=== PATIENT | female | born 1965 | race Hispanic/Latino ===

== ENCOUNTER 2017-07-03 20:41 | Emergency (ER) | payer MEDICARE, OTHER ==
[2017-07-03 20:42] VITALS: BMI 23.2
[2017-07-03] MEDS ORDERED: Albuterol-Ipratrop 3 mg / 0.5 (3 ml) UD IH STA (21:11)
[2017-07-03 21:19] VITALS: BP 112/74; PULSE 85; RESP 24; TEMP 98.1; O2SAT 98
--- NOTE | 2017-07-03 21:49 | ED PDOC ---
Arrival/HPI - General Chief Complaint: Cough, Cold, Congestion Time Seen by Provider: 07/03/17 20:43 Historian: Patient - History of Present Illness Narrative History of Present Illness (Text): 07/03/17 21:10 Jena Knox is a 52 year old female, whose past medical history includes COPD, Stage 3 cervical cancer, and pancreatitis, who presents to the Emergency department complaining of minimally productive cough yellowish sputum for past few days. Patient reports associated chills but no fever.No chest pain. Patient also reports slight shortness of breath which she attributes to her COPD. Patient notes she was recently in contact with someone sick. Patient denies any history of nausea, vomiting, diarrhea, urinary symptoms, back pain, neck pain, headache, dizziness, or any other complaints. Symptom Onset: Gradual Symptom Course: Unchanged Activities at Onset: Light Context: Home Past Medical History - Provider Review Nursing Documentation Reviewed: Yes - Infectious Disease Hx of Infectious Diseases: None - Tetanus Immunization Tetanus Immunization: Unknown - Cardiac Hx Pacemaker: No - Pulmonary Hx Respiratory Disorders: Yes Hx Chronic Obstructive Pulmonary Disease (COPD): Yes Hx Emphysema: Yes Other/Comment: former smoker - Neurological Hx Paralysis: No - HEENT Hx HEENT Disorder: No - Renal Hx Renal Disorder: Yes Other/Comment: renal disease, horseshoe kidney - Endocrine/Metabolic Hx Endocrine Disorders: No - Hematological/Oncological Hx Blood Transfusions: No Hx Blood Transfusion Reaction: No - Integumentary Hx Dermatological Disorder: No - Musculoskeletal/Rheumatological Hx Musculoskeletal Disorders: Yes - Gastrointestinal Hx Gastrointestinal Disorders: Yes Hx Pancreatitis: Yes Other/Comment: colitis, ileus - Genitourinary/Gynecological Hx Genitourinary Disorders: Yes - Psychiatric Hx Emotional Abuse: No Hx Physical Abuse: No Hx Substance Use: No - Surgical History Hx Cholecystectomy: Yes - Anesthesia Hx Anesthesia Reactions: Yes Hx Malignant Hyperthermia: No - Suicidal Assessment Feels Threatened In Home Enviroment: No Family/Social History - Physician Review Nursing Documentation Reviewed: Yes Family/Social History: Unknown Family HX Smoking Status: Former Smoker Hx Alcohol Use: No Hx Substance Use: No Hx Substance Use Treatment: No Allergies/Home Meds Allergies/Adverse Reactions: Allergies amoxicillin trihydrate [From Augmentin] Adverse Reaction (Verified 08/22/15 16: 08) PAIN potassium clavulanate [From Augmentin] Adverse Reaction (Verified 08/22/15 16:08 ) PAIN Review of Systems - Physician Review All systems were reviewed & negative as marked: Yes - Review of Systems Constitutional: Other (+chills). absent: Fevers Eyes: Normal ENT: Normal Respiratory: SOB, Cough, Sputum Cardiovascular: Chest Pain Gastrointestinal: Normal. absent: Abdominal Pain, Diarrhea, Nausea, Vomiting Genitourinary Female: Normal. absent: Dysuria, Frequency, Hematuria, Urine Output Changes Musculoskeletal: Normal. absent: Back Pain, Neck Pain Skin: Normal. absent: Rash Neurological: Normal. absent: Headache, Dizziness Endocrine: Normal Hemo/Lymphatic: Normal Psychiatric: Normal Physical Exam Vital Signs Reviewed: Yes Vital Signs Temp Pulse Resp BP Pulse Ox 07/03/17 21:03 98.1 F 85 24 112/74 98 Temperature: Afebrile Blood Pressure: Normal Pulse: Regular Respiratory Rate: Normal Appearance: Positive for: Well-Appearing, Non-Toxic, Comfortable Pain Distress: None Mental Status: Positive for: Alert and Oriented X 3 - Systems Exam Head: Present: Atraumatic, Normocephalic Pupils: Present: PERRL Extroacular Muscles: Present: EOMI Conjunctiva: Present: Normal Ears: Present: Normal, NORMAL TM, Normal Canal. No: Erythema Mouth: Present: Moist Mucous Membranes Pharnyx: Present: Normal. No: ERYTHEMA, EXUDATE, TONSILS ENLARGED, Peritonsilar Swelling, Uvular Deviation, Muffled/Hoarse Voice, Strider, Soft Palate/Uvular Edema Nose (External): Present: Atraumatic Nose (Internal): Present: Normal Inspection Neck: Present: Normal Range of Motion (Supple). No: Meningeal Signs, MIDLINE TENDERNESS, Paraspinal Tenderness Respiratory/Chest: Present: Decreased Breath Sounds (Decreased breath sounds bilaterally). No: Respiratory Distress, Accessory Muscle Use Cardiovascular: Present: Regular Rate and Rhythm, Normal S1, S2. No: Murmurs Abdomen: Present: Normal Bowel Sounds. No: Tenderness, Distention, Peritoneal Signs Back: Present: Normal Inspection Upper Extremity: Present: Normal Inspection. No: Cyanosis, Edema Lower Extremity: Present: Normal Inspection. No: Edema Neurological: Present: GCS=15, CN II-XII Intact, Speech Normal Skin: Present: Warm, Dry, Normal Color. No: Rashes Psychiatric: Present: Alert, Oriented x 3, Normal Insight, Normal Concentration Medical Decision Making ED Course and Treatment: 07/03/17 21:10 Impression: 52 year old female complaining of productive cough with yellowish sputum, chills , occasional chest discomfort with coughing. Differential Diagnosis included but are not limited to: bronchitis vs. pneumonia vs. COPD Plan: -- EKG -- CXR -- Labs -- Duoneb -- Reassess and disposition Prior Visits: Notes and results from previous visits were reviewed. On 08/05/2016, pt was seen in the Emergency department for left 4th toe pain s/ p injury. Pt was d/c home. Progress Notes: Reviewed EKG, NSR at [address]-segment elevations or depressions, no T-wave inversions, normal intervals. 07/03/17 22:19 CXR reviewed, shows no acute processes. 07/03/17 23:26 On reevaluation the patient feels better and is in no acute distress. I have discussed the results and plan with the patient, who expresses understanding. Patient given the opportunity to ask question, all questions were answered and there is agreement with the plan to discharge the patient home. Patient is stable for discharge. Patient was instructed to follow up with physician/clinic in 1-2 days or return if symptoms persist/worsen or new concerning symptoms arise. - Lab Interpretations Lab Results: 07/03/17 21:54 07/03/17 21:54 Lab Results 07/03/17 21:54: WBC 6.5 D, RBC 4.12, Hgb 11.8 L, Hct 36.5, MCV 88.6, MCH 28.6, MCHC 32.3, RDW 12.2, Plt Count 231, MPV 10.5 07/03/17 21:54: Sodium 141, Potassium 3.6, Chloride 102, Carbon Dioxide 29, Anion Gap 13, BUN 13, Creatinine 0.9, Est GFR ( Amer) > 60, Est GFR (Non- Af Amer) > 60, Random Glucose 97, Calcium 9.1, Total Bilirubin 0.3, AST 19, ALT 23, Alkaline Phosphatase 67, Total Protein 7.3, Albumin 4.0, Globulin 3.3, Albumin/Globulin Ratio 1.2 I have reviewed the lab results: Yes - RAD Interpretation Radiology Orders: 07/03/17 21:10 CHEST PORTABLE [RAD] Stat Gut Cleaner: ED Physician - EKG Interpretation Interpreted by ED Physician: Yes Type: 12 lead EKG - Medication Orders Current Medication Orders: Discontinued Medications Albuterol/Ipratropium (Duoneb 3 Mg/0.5 Mg (3 Ml) Ud) 3 ml IH ONCE STA Stop: 07/03/17 21:12 Last Admin: 07/03/17 21:36 Dose: 3 ml Azithromycin (Zithromax) 500 mg PO ONCE STA PRN Reason: Protocol Stop: 07/03/17 23:21 - Scribe Statement The provider has reviewed the documentation as recorded by the Vikramibsherin Finley All medical record entries made by the Vikramibsherin were at my direction and personally dictated by me. I have reviewed the chart and agree that the record accurately reflects my personal performance of the history, physical exam, medical decision making, and the department course for this patient. I have also personally directed, reviewed, and agree with the discharge instructions and disposition. Disposition/Present on Arrival - Present on Arrival Any Indicators Present on Arrival: No History of DVT/PE: No History of Uncontrolled Diabetes: No Urinary Catheter: No History of Decub. Ulcer: No History Surgical Site Infection Following: None - Disposition Have Diagnosis and Disposition been Completed?: Yes Diagnosis: Bronchitis, COPD (chronic obstructive pulmonary disease) Disposition: HOME/ ROUTINE Disposition Time: 23:26 Patient Plan: Discharge Patient Problems: Current Active Problems Problem Status Onset Bronchitis Acute COPD (chronic obstructive pulmonary disease) Acute Condition: STABLE Discharge Instructions (ExitCare): Acute Bronchitis (ED), COPD (Chronic Obstructive Pulmonary Disease) (ED) Additional Instructions: Medication as prescribed/drink plenty of liquids/rest/follow up with your doctor this week Prescriptions: Benzonatate [Tessalon Perles] 100 mg PO TID PRN #21 sgl PRN Reason: Cough Albuterol HFA [Ventolin HFA 90 mcg/actuation (8 g)] 2 puff IH [id number] PRN #1 puff PRN Reason: Wheezing Azithromycin [Zithromax] 250 mg PO DAILY #6 tab Forms: [employer] ([place])
[2017-07-03 22:02] LABS: HEMATOCRIT 36.5 % (36.0-48.0); MEAN CELL VOLUME 88.6 fl (80.0-105.0); MEAN CORPUSCULAR HEMOGLOBIN 28.6 pg (25.0-35.0); MEAN CORPUSCULAR HGB CONC 32.3 g/dl (31.0-37.0); MEAN PLATELET VOLUME 10.5 fl (7.0-11.0); RED CELL DISTRIBUTION WIDTH 12.2 % (11.5-14.5); WHITE BLOOD COUNT 6.5 10^3/ul (4.5-11.0)
[2017-07-03 22:14] LABS: ALB/GLOB RATIO 1.2 (1.1-1.8); ALKALINE PHOSPHATASE 67 U/L (38-126); ALT/SGPT 23 U/L (7-56); AST/SGOT 19 U/L (14-36); BILIRUBIN,TOTAL 0.3 mg/dL (0.2-1.3); BLOOD UREA NITROGEN 13 mg/dL (7-21); CALCIUM 9.1 mg/dL (8.4-10.5); CARBON DIOXIDE 29 mmol/L (21-33); CHLORIDE 102 mmol/L (98-107); GFR AFRICAN-AMERICAN > 60; GLUCOSE,RANDOM 97 mg/dL (70-110); POTASSIUM 3.6 mmol/L (3.6-5.0); SODIUM 141 mmol/L (132-148); TOTAL PROTEIN 7.3 g/dL (5.8-8.3)
--- NOTE | 2017-07-04 09:23 | RAD ---
HISTORY: cough COMPARISON: Chest dated 07/23/[address] scan of the chest dated 03/28/2015. FINDINGS: LUNGS: Significant emphysema upper lobe predominance right greater than left. Marked bulla and bleb changes in the lung apices right greater than left also less well appreciated as compared to high-resolution CT chest. . Elliptical shaped nodular density right lung apex seen on prior CT scan is not appreciated on this study. PLEURA: No significant pleural effusion identified, no pneumothorax apparent. CARDIOVASCULAR: Normal. OSSEOUS STRUCTURES: No significant abnormalities. VISUALIZED UPPER ABDOMEN: Normal. OTHER FINDINGS: None. IMPRESSION: Significant emphysema upper lobe predominance right greater than left. Marked bulla and bleb changes in the lung apices right greater than left also less well appreciated as compared to high-resolution CT chest.
--- NOTE | 2017-07-04 10:45 | CARD ---
APPROVED REPORT EKG Measurement Heart [id number] DC [id number] <Conclusion> Normal sinus rhythm Normal ECG
== END 2017-07-04 00:08 | disposition home or self-care (01) ==
LOC: ED 20:41
DX: J44.9 Chronic obstructive pulmonary disease, unspecified (principal); Z87.891 Personal history of nicotine dependence

== ENCOUNTER 2017-11-18 21:17 | Emergency (ER) | payer OTHER ==
[2017-11-18 21:32] VITALS: BMI 23.6
[2017-11-18 21:35] VITALS: RESP 18; TEMP 98.4
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
[2017-11-18 23:34] VITALS: BP 127/87; PULSE 75; O2SAT 100
--- NOTE | 2017-11-19 08:25 | RAD ---
PROCEDURE: Radiographs of the Right Shoulder HISTORY: Pain. COMPARISON: No prior. FINDINGS: BONES: No evidence of acute displaced fracture nor dislocation. The osseous structures intact. JOINTS: Normal. Glenohumeral and acromioclavicular joints preserved. No osteoarthritisMinor degenerative changes right acromioclavicular joint. The. SOFT TISSUES: Normal. OTHER FINDINGS: None. IMPRESSION: Normal radiographs of the right shoulder.
== END 2017-11-18 23:22 | disposition home or self-care (01) ==
LOC: ED 21:17
DX: M25.511 Pain in right shoulder (principal); V49.49XA Driver injured in collision with other motor vehicles in traffic accident, initial encounter; Y92.410 Unspecified street and highway as the place of occurrence of the external cause
CPT/HCPCS: 73030; 96372; 99284; J1885

== ENCOUNTER 2018-08-02 22:12 | Emergency (ER) | payer OTHER ==
[2018-08-02 22:17] VITALS: BMI 23.0
[2018-08-02 22:36] VITALS: RESP 18; TEMP 98; O2SAT 100
[2018-08-03 00:55] VITALS: BP 125/78; PULSE 70
--- NOTE | 2018-08-03 02:23 | ED PDOC ---
Arrival/HPI - General Chief Complaint: Chest Pain Time Seen by Provider: 08/02/18 22:21 Historian: Patient - History of Present Illness Narrative History of Present Illness (Text): 08/03/18 02:23 53 year old female, whose past medical history includes COPD, Stage 3 cervical cancer, and pancreatitis, presents to the Emergency department with sharp chest pain. Patient states she picked up a 46 inch TV today, which started her pain. Patient infroms pain increases with movement of arms and is reproducible on palpation. Patient denies any shortness of breath, direct trauma to the chest, fevers, chills, headache, dizziness, cough, back pain, neck pain, or any other complaints. Time/Duration: Prior to Arrival Symptom Onset: Sudden Symptom Course: Unchanged Quality: Stabbing Activities at Onset: Significant Context: Exertion Past Medical History - Provider Review Nursing Documentation Reviewed: Yes - Infectious Disease Hx of Infectious Diseases: None - Tetanus Immunization Tetanus Immunization: Unknown - Cardiac Hx Pacemaker: No - Pulmonary Hx Respiratory Disorders: Yes Hx Chronic Obstructive Pulmonary Disease (COPD): Yes Hx Emphysema: Yes Other/Comment: former smoker - Neurological Hx Paralysis: No - HEENT Hx HEENT Disorder: No - Renal Hx Renal Disorder: Yes Other/Comment: renal disease, horseshoe kidney - Endocrine/Metabolic Hx Endocrine Disorders: No - Hematological/Oncological Hx Blood Transfusions: No Hx Blood Transfusion Reaction: No - Integumentary Hx Dermatological Disorder: No - Musculoskeletal/Rheumatological Hx Musculoskeletal Disorders: Yes - Gastrointestinal Hx Gastrointestinal Disorders: Yes Hx Pancreatitis: Yes Other/Comment: colitis, ileus - Genitourinary/Gynecological Hx Genitourinary Disorders: Yes - Psychiatric Hx Emotional Abuse: No Hx Physical Abuse: No Hx Substance Use: No - Surgical History Hx Cholecystectomy: Yes - Anesthesia Hx Anesthesia Reactions: Yes Hx Malignant Hyperthermia: No - Suicidal Assessment Feels Threatened In Home Enviroment: No Family/Social History - Physician Review Nursing Documentation Reviewed: Yes Family/Social History: No Known Family HX Smoking Status: Former Smoker Hx Alcohol Use: No Hx Substance Use: No Hx Substance Use Treatment: No Allergies/Home Meds Allergies/Adverse Reactions: Allergies amoxicillin trihydrate [From Augmentin] Adverse Reaction (Verified 08/02/18 22:18) PAIN potassium clavulanate [From Augmentin] Adverse Reaction (Verified 08/02/18 22:18) PAIN Review of Systems - Physician Review All systems were reviewed & negative as marked: Yes - Review of Systems Constitutional: absent: Fevers, Night Sweats Respiratory: absent: SOB Cardiovascular: Chest Pain. absent: Other (No direct trauma) Musculoskeletal: absent: Back Pain, Neck Pain Physical Exam Vital Signs Reviewed: Yes Vital Signs Temp Pulse Resp BP Pulse Ox 08/03/18 00:00 70 18 125/78 100 08/02/18 22:35 98.0 F 72 18 123/81 100 Temperature: Afebrile Blood Pressure: Normal Pulse: Regular Respiratory Rate: Normal Appearance: Positive for: Well-Appearing, Non-Toxic, Comfortable Pain Distress: None Mental Status: Positive for: Alert and Oriented X 3 - Systems Exam Head: Present: Atraumatic, Normocephalic Pupils: Present: PERRL Extroacular Muscles: Present: EOMI Conjunctiva: Present: Normal Mouth: Present: Moist Mucous Membranes Neck: Present: Normal Range of Motion Respiratory/Chest: Present: Tender to Palpation (Point tenderness to left sternal border). No: Respiratory Distress, Accessory Muscle Use Cardiovascular: Present: Regular Rate and Rhythm, Normal S1, S2. No: Murmurs Abdomen: No: Tenderness, Distention, Peritoneal Signs Back: Present: Normal Inspection Upper Extremity: Present: Normal Inspection. No: Cyanosis, Edema Lower Extremity: Present: Normal Inspection. No: Edema Neurological: Present: GCS=15, CN II-XII Intact, Speech Normal Skin: Present: Warm, Dry, Normal Color. No: Rashes Psychiatric: Present: Alert, Oriented x 3, Normal Insight, Normal Concentration Medical Decision Making ED Course and Treatment: 08/03/18 02:28 Impression: 53 year old female presents with chest pain, status post heavy lifting Plan: -- Chest Xray -- Ibuprofen -- Toradol -- Reassess and disposition Prior Visits: Notes and results from previous visits were reviewed. Progress Notes: - RAD Interpretation Radiology Orders: 08/02/18 23:00 CXR [CHEST PORTABLE] [RAD] Stat - Medication Orders Current Medication Orders: Discontinued Medications Ibuprofen (Motrin Tab) 600 mg PO STAT STA Stop: 08/02/18 23:48 Last Admin: 08/02/18 23:50 Dose: 600 mg MAR Pain/Vitals Document 08/02/18 23:50 JOL (Rec: 08/03/18 00:55 JOL [id number]) Pain Reassessment Is This A Pain ReAssessment? No Sleep Is patient sleeping during reassessment? No Presence of Pain Presence of Pain Yes Pain Scale Used Protocol: PSCALES Pain Scale Used Numeric Location Pain Location Body Site Chest Intensity 7 Scale Used Numeric Ketorolac Tromethamine (Toradol) 60 mg IM STAT STA Stop: 08/02/18 23:01 Last Admin: 08/02/18 23:24 Dose: Not Given Non-Admin Reason: Patient Refused - Scribe Statement The provider has reviewed the documentation as recorded by the Consuelo Umanzor Provider Scribe Attestation: All medical record entries made by the Scribe were at my direction and personally dictated by me. I have reviewed the chart and agree that the record accurately reflects my personal performance of the history, physical exam, medical decision making, and the department course for this patient. I have also personally directed, reviewed, and agree with the discharge instructions and disposition. Disposition/Present on Arrival - Present on Arrival Any Indicators Present on Arrival: No History of DVT/PE: No History of Uncontrolled Diabetes: No Urinary Catheter: No History of Decub. Ulcer: No History Surgical Site Infection Following: Abdominal Surgery, None - Disposition Have Diagnosis and Disposition been Completed?: Yes Diagnosis: Costochondritis, acute Disposition: HOME/ ROUTINE Disposition Time: 23:20 Condition: GOOD Discharge Instructions (ExitCare): Costochondritis (DC) Additional Instructions: CELESTE MALDONADO, thank you for letting us take care of you today. The emergency medical care you received today was directed at your acute symptoms. If you were prescribed any medication, please fill it and take as directed. It may take several days for your symptoms to resolve. Return to the Emergency Department if your symptoms worsen, do not improve, or if you have any other problems. Please contact your doctor or call one of the physicians/clinics you have been referred to that are listed on the Patient Visit Information form that is included in your discharge packet. Bring any paperwork you were given at discharge with you along with any medications you are taking to your follow up visit. Our treatment cannot replace ongoing medical care by a primary care provider outside of the emergency department. Thank you for allowing the [facility] team to be part of your care today. Follow up with your primary care doctor in 2-3 days for re-evaluation and further management. Prescriptions: Cyclobenzaprine [Cyclobenzaprine HCl] 10 mg PO Q8 PRN #20 tab PRN Reason: Muscle Spasm Ibuprofen [Motrin] 600 mg PO Q6 PRN #20 tab PRN Reason: Pain, Moderate (4-7) Referrals: Jessie Najera MD [Primary Care Provider] - Follow up with primary Forms: [employer] (Portuguese)
--- NOTE | 2018-08-03 08:47 | RAD ---
Date of service: 08/02/2018 HISTORY: r/o infiltrate COMPARISON: 07/03/2017. FINDINGS: LUNGS: The lungs are well inflated and clear. PLEURA: No pleural effusions or pneumothorax. CARDIOVASCULAR: The heart is normal in size. No aortic atherosclerotic calcification present. OSSEOUS STRUCTURES: Within normal limits for the patient's age. VISUALIZED UPPER ABDOMEN: Normal. OTHER FINDINGS: None. IMPRESSION: No active pulmonary disease.
--- NOTE | 2018-08-03 19:49 | CARD ---
APPROVED REPORT Date of service: 08/02/2018 EKG Measurement Heart [id number] [id number] <Conclusion> Normal sinus rhythm Normal ECG
== END 2018-08-03 | disposition home or self-care (01) ==
LOC: ED 22:12
DX: M94.0 Chondrocostal junction syndrome [Tietze] (principal); J44.9 Chronic obstructive pulmonary disease, unspecified; Z85.41 Personal history of malignant neoplasm of cervix uteri; Z87.891 Personal history of nicotine dependence

== ENCOUNTER 2018-08-27 10:36 | Outpatient (CLI) | payer OTHER | END 2018-08-27 10:37 | disposition home or self-care (01) | LOC: RAD 10:37 | DX: Z12.31 Encounter for screening mammogram for malignant neoplasm of breast (principal) ==

== ENCOUNTER 2018-10-15 06:42 | Outpatient (CLI) | payer OTHER | END 2018-10-15 06:43 | disposition home or self-care (01) | LOC: PET-BROA 06:42 ==

== ENCOUNTER 2018-10-26 15:41 | Emergency (ER) | payer OTHER ==
[2018-10-26 15:42] VITALS: BMI 23.0
[2018-10-26 16:20] VITALS: RESP 18; TEMP 97.8
[2018-10-26] MEDS ORDERED: Sodium Chloride 0.9% 1,000 ML IV SCH (16:30)
--- NOTE | 2018-10-26 16:40 | ED PDOC ---
Arrival/HPI - General Chief Complaint: Abdominal Pain Time Seen by Provider: 10/26/18 15:46 Historian: Patient - History of Present Illness Narrative History of Present Illness (Text): 10/26/18 16:36 53 F with pmh of COPD, Stage 3 cervical cancer, and pancreatitis presents with cc of abdominal pain radiating to back and flank since yesterday. Patient reports pain is exacerbated when laying down. Patient recalls visiting her [facility] physician earlier who advised her to present to the emergency department. Patient denies any fevers, chills, headache, dizziness, chest pain, shortness of breath, dyspnea on exertion, cough, diaphoresis, nausea, vomiting, diarrhea, neck pain, or any other complaint. Time/Duration: 24 hours, Other Symptom Onset: Sudden Symptom Course: Unchanged Activities at Onset: Light Context: Home Past Medical History - Provider Review Nursing Documentation Reviewed: Yes - Infectious Disease Hx of Infectious Diseases: None - Tetanus Immunization Tetanus Immunization: Unknown - Cardiac Hx Cardiac Disorders: No Hx Pacemaker: No - Pulmonary Hx Respiratory Disorders: Yes Hx Chronic Obstructive Pulmonary Disease (COPD): Yes Hx Emphysema: Yes Other/Comment: former smoker - Neurological Hx Neurological Disorder: No Hx Paralysis: No - HEENT Hx HEENT Disorder: No - Renal Hx Renal Disorder: Yes Other/Comment: renal disease, horseshoe kidney - Endocrine/Metabolic Hx Endocrine Disorders: No - Hematological/Oncological Hx Blood Disorders: No Hx Blood Transfusions: No Hx Blood Transfusion Reaction: No - Integumentary Hx Dermatological Disorder: No - Musculoskeletal/Rheumatological Hx Musculoskeletal Disorders: Yes - Gastrointestinal Hx Gastrointestinal Disorders: Yes Hx Pancreatitis: Yes Other/Comment: colitis, ileus - Genitourinary/Gynecological Hx Genitourinary Disorders: Yes - Psychiatric Hx Emotional Abuse: No Hx Physical Abuse: No Hx Substance Use: No - Surgical History Hx Cholecystectomy: Yes - Anesthesia Hx Anesthesia Reactions: Yes Hx Malignant Hyperthermia: No - Suicidal Assessment Feels Threatened In Home Enviroment: No Family/Social History - Physician Review Nursing Documentation Reviewed: Yes Family/Social History: Unknown Family HX Smoking Status: Former Smoker Hx Alcohol Use: No Hx Substance Use: No Hx Substance Use Treatment: No Allergies/Home Meds Allergies/Adverse Reactions: Allergies amoxicillin trihydrate [From Augmentin] Adverse Reaction (Verified 08/02/18 22:18) PAIN potassium clavulanate [From Augmentin] Adverse Reaction (Verified 08/02/18 22:18) PAIN Review of Systems - Physician Review All systems were reviewed & negative as marked: Yes - Review of Systems Constitutional: Normal Eyes: Normal ENT: Normal Respiratory: Normal Cardiovascular: Normal Gastrointestinal: Abdominal Pain Genitourinary Female: Normal Musculoskeletal: Back Pain (due to radiating abd pain) Skin: Normal Neurological: Normal Endocrine: Normal Hemo/Lymphatic: Normal Psychiatric: Normal Physical Exam - Physical Exam Narrative Physical Exam (Text): 10/26/18 16:35 Gen: VS reviewed, alert, well developed, well nourished, nontoxic, mild distress Eye: EOMI, PERRL ENT: normal pharynx. Neck: no JVD, supple, no adenopathy CV: regular rate, regular rhythm, no rubs,no murmur, S1, S2 Pulm: no distress, clear to auscultation, no wheeze, no rhonchi, breath sounds equal, no rales Abd: Diffuse lower abdominal tenderness, some guarding, no rebound, no rigidity Ext: no edema Skin: good color, no rash, no cyanosis Psych: responds appropriately to questions, normal affect Neuro: oriented x3, CN2-12 intact grossly, motor intact, sensation intact Vital Signs Temp Pulse Resp BP Pulse Ox 10/26/18 16:19 97.8 F 74 18 120/71 100 Medical Decision Making ED Course and Treatment: 10/26/18 16:40 Impression: 53 F presents with cc of abdominal pain radiating to back and flank since yesterday Plan: -- Labs -- Abdomen/Pelvis CT -- UA -- Reassess and disposition Prior Visits: Notes and results from previous visits were reviewed. Progress Notes: 10/26/18 20:43 patient denies any vomiting or diarrhea which contradicts the reported Ct findings of enteritis, nontoxic appearing, will tx for uti. patient states she was on a antibiotic recently for uti but stopped taking after one d ay due to diarrhea. patient is unsure of which antibiotic she was on. patient would prefer to go home on po antibiotics. 10/26/18 20:58 case d/w dr. siegel and agrees for dc and outpt follow up. - RAD Interpretation Narrative RAD Interpretations (Text): 10/26/18 20:00 CT Abdomen and Pelvis with IV contrast 1. Status post cholecystectomy. 2. Evidence of severe panenteritis. GI consult and follow-up with upper endoscopy and colonoscopy is recommended. 3. Horseshoe renal configuration; a normal anatomical variant. 4. Severe chronic cystitis. 5. Interval Schmorl's node herniation involving the superior endplate of L2 Radiology Orders: 10/26/18 16:19 ABDOMEN & PELVIS [ABD & PELVIS IV CONTRAST ONLY] [CT] Stat Bargain Table Clerk: Radiologist - Medication Orders Current Medication Orders: Sodium Chloride (Sodium Chloride 0.9%) 1,000 mls @ 150 mls/hr IV .Q6H40M [facility] - Scribe Statement The provider has reviewed the documentation as recorded by the Consuelo Alicia All medical record entries made by the Vikramibsherin were at my direction and personally dictated by me. I have reviewed the chart and agree that the record accurately reflects my personal performance of the history, physical exam, medical decision making, and the department course for this patient. I have also personally directed, reviewed, and agree with the discharge instructions and disposition. Disposition/Present on Arrival - Present on Arrival Any Indicators Present on Arrival: No History of DVT/PE: No History of Uncontrolled Diabetes: No Urinary Catheter: No History of Decub. Ulcer: No History Surgical Site Infection Following: None - Disposition Have Diagnosis and Disposition been Completed?: Yes Diagnosis: Cystitis Disposition: HOME/ ROUTINE Disposition Time: 20:46 Patient Plan: Discharge Patient Problems: Current Active Problems Problem Status Onset Cystitis Acute Condition: STABLE Discharge Instructions (ExitCare): Acute Cystitis (DC) Additional Instructions: return for any new or worsening symptoms especially worsening pain, fevers. follow up with your primary care doctor as soon as possible. Prescriptions: Ciprofloxacin [Cipro] 500 mg PO BID 7 Days #13 tab Lactobacillus Acidophilus [Acidophilus Lactobacilli] 2 each PO BID 14 Days #28 capsule Forms: [employer] ([place])
[2018-10-26] MEDS ORDERED: Iohexol 350 MG/100 ML VIAL ONE (17:03)
[2018-10-26 17:10] LABS: BASO # 0.01 K/mm3 (0.0-2.0); BASO % 0.1 % (0.0-3.0); EOS # 0.1 (0.0-0.7); EOS % 0.9 % (1.5-5.0); HEMOGLOBIN 13.4 g/dL (12.0-16.0); LYMPH # 1.9 (1.2-3.4); LYMPH % 17.4 % (22.0-35.0); MEAN CELL VOLUME 88.5 fl (80.0-105.0); MEAN CORPUSCULAR HEMOGLOBIN 28.1 pg (25.0-35.0); MEAN CORPUSCULAR HGB CONC 31.8 g/dl (31.0-37.0); MEAN PLATELET VOLUME 11.8 fl (7.0-11.0); MONO # 0.6 (0.1-0.6); MONO % 5.6 % (1.0-6.0); RBC 4.77 10^6/uL (3.5-6.1); RED CELL DISTRIBUTION WIDTH 13.7 % (11.5-14.5); WHITE BLOOD COUNT 10.8 10^3/uL (4.5-11.0)
[2018-10-26 17:56] LABS: ALB/GLOB RATIO 1.2 (1.1-1.8); ALT/SGPT 16 U/L (7-56); AST/SGOT 15 U/L (14-36); BLOOD UREA NITROGEN 14 mg/dL (7-21); GFR NON-AFRICAN AMERICAN > 60; LIPASE 401 U/L (23-300)
[2018-10-26 18:39] LABS: URINE BILIRUBIN SMALL (NEGATIVE); URINE BLOOD LARGE (NEGATIVE); URINE GLUCOSE (UA) NEGATIVE (NEGATIVE); URINE LEUKOCYTE ESTERASE TRACE Leu/uL (NEGATIVE); URINE PROTEIN >=300 mg/dL (<30 mg/dL); URINE UROBILINOGEN 0.2 E.U./dL (<1 E.U./dL)
[2018-10-26 18:40] LABS: URINE APPEARANCE SLIGHT-CLOUDY (CLEAR); URINE COLOR LIGHT BROWN (YELLOW)
[2018-10-26 21:06] VITALS: BP 111/70; PULSE 79; O2SAT 99
--- NOTE | 2018-10-27 09:00 | CT ---
Date of service: 10/26/2018 PROCEDURE: CT Abdomen and Pelvis with contrast HISTORY: lower abdominal, hematuria COMPARISON: 05/03/2015 TECHNIQUE: CT scan of the abdomen and pelvis was performed after administration of intravenous contrast. Oral contrast was not administered. Coronal and sagittal reformatted images were obtained. Contrast dose: 96 mL Omnipaque 350 Radiation dose: Total exam DLP = 216.7 mGy-cm. This CT exam was performed using one or more of the following dose reduction techniques: Automated exposure control, adjustment of the mA and/or kV according to patient size, and/or use of iterative reconstruction technique. FINDINGS: LOWER THORAX: The visualized lungs are clear. LIVER: Normal in size with homogeneous enhancement. Fatty liver. No gross lesion or ductal dilatation. GALLBLADDER AND BILE DUCTS: Surgically absent. PANCREAS: Normal in size with homogeneous enhancement. No gross lesion or ductal dilatation. SPLEEN: Normal in size and appearance. ADRENALS: No discrete nodule. KIDNEYS AND URETERS: There is a horseshoe kidney. Normal in size with homogeneous enhancement. No hydronephrosis. No solid mass. VASCULATURE: No aortic aneurysm. There are no aortic atherosclerotic calcifications or mural plaque present. BOWEL: Evaluation of the bowel is limited in the absence of oral contrast. There are fluid-filled mildly dilated small bowel loops and fluid in the colon. No bowel wall thickening or obstruction. APPENDIX: Normal appendix. PERITONEUM: No free fluid. No free air. LYMPH NODES: No enlarged lymph nodes. BLADDER: Partially decompressed however there is apparent moderate circumferential mural thickening in the bladder wall. REPRODUCTIVE: The uterus is normal in size. BONES: No acute fracture. Severe degenerative disc disease at T12-L1 and large Schmorl's node at the superior endplate of L2 vertebral body. OTHER FINDINGS: None. IMPRESSION: Findings are compatible with acute nonspecific infectious/inflammatory enterocolitis. Suspect acute and/or chronic cystitis. Please correlate with urine analysis. Horseshoe kidney. A preliminary report was provided by [employer].
== END 2018-10-26 21:05 | disposition home or self-care (01) ==
LOC: ED 15:41
DX: N30.00 Acute cystitis without hematuria (principal); Z85.41 Personal history of malignant neoplasm of cervix uteri
CPT/HCPCS: 74177; 80053; 81003; 81025; 83690; 85025; 99283; J7030; Q9967

== ENCOUNTER 2018-10-26 16:10 | Outpatient (CLI) | payer OTHER | END 2018-10-26 16:11 | disposition home or self-care (01) | LOC: OPLAB 16:10 ==